=== PATIENT | male | born 1950 | race Caucasian/White ===

== ENCOUNTER 2023-06-21 06:50 | Day surgery (SDC) | payer OTHER ==
[~2023-06-21] VITALS: Ht 198.1 cm; Wt 147.4 kg
[2023-06-21] VITALS (8 sets, daily range): BP systolic 119–143; BP diastolic 58–95; PULSE 53–62; RESP 11–20; TEMP 98; O2SAT 91–93
[~2023-06-21 06:50] MED LIST: AMLO1TAB22 PO; CAR3125T PO; CHOL20007 PO; DOXA4TAB83 PO; FINA5TAB4 PO; FURO20TA3 PO; GLIP-110 PO; LISI40TA16 PO; METF-370 PO; ROSU10TA16 PO; TRAM50TA2 PO
[2023-06-21] MEDS ORDERED: MIDAZOLAM HCL 2MG/2ML 2ml VIAL (1mg/ml) ONE (09:54)
[2023-06-21] MEDS ORDERED: fentaNYL CITRATE 100 MCG/2 ML VL ONE (09:54)
[2023-06-21] MEDS ORDERED: HEPARIN SODIUM (PORCINE) 5000 UNITS/ML 1ML VIAL ONE (09:54)
[2023-06-21] MEDS ORDERED: ANGIOMAX 250 MG VIAL IV ONE (09:54)
[2023-06-21] MEDS ORDERED: VERAPAMIL 2.5MG/ML INJ 2ML VIAL IV ONE (09:54)
[2023-06-21] MEDS ORDERED: SODIUM CHL 0.9% 0 ML ONE (09:55)
[2023-06-21] MEDS ORDERED: LIDOCAINE 2%HCL (LOCAL ANESTH.) INJ 20ML MDV ONE (10:09)
== END 2023-06-21 12:41 | disposition home or self-care (01) ==
LOC: CATH 06:50
PROVIDERS: ATTEND Internal Medicine Cardiovascular Disease
DX: R94.39 Abnormal result of other cardiovascular function study (principal); I10 Essential (primary) hypertension; E11.9 Type 2 diabetes mellitus without complications; E78.5 Hyperlipidemia, unspecified; N40.0 Benign prostatic hyperplasia without lower urinary tract symptoms; D86.9 Sarcoidosis, unspecified; E66.01 Morbid (severe) obesity due to excess calories; Z68.37 Body mass index [BMI] 37.0-37.9, adult; Z79.84 Long term (current) use of oral hypoglycemic drugs; Z79.899 Other long term (current) drug therapy
CPT/HCPCS: 93458; C1887; C1894; J1644; J2250; J3010; 99152